=== PATIENT | male | born 1950 | race Caucasian/White ===

== ENCOUNTER → 2016-06-24 | Outpatient (CLI) | payer MEDICARE, MEDICAID ==
[2016-06-24 11:07] LABS: ALBUMIN 4.1 GM/DL (3.2-5.2); ALBUMIN/GLOBULIN RATIO 1.24 (1.00-1.93); BILIRUBIN,TOTAL 0.6 MG/DL (0.2-1.0); CALCIUM LEVEL 8.8 MG/DL (8.8-10.2); CREATININE FOR GFR 1.51 MG/DL (0.70-1.30); GLOMERULAR FILTRATION RATE 49.5 (>49); POTASSIUM SERUM 3.9 MEQ/L (3.5-5.1); TOTAL PROTEIN 7.4 GM/DL (6.4-8.2)
== END ==
LOC: M LAB 10:11
PROVIDERS: ATTEND Physician Assistant
DX: I10 Essential (primary) hypertension (principal); E78.2 Mixed hyperlipidemia

== ENCOUNTER → 2017-08-07 | Outpatient (REF) | payer MEDICARE | LOC: M SFHCPLAZ 12:41 | DX: D23.0 Other benign neoplasm of skin of lip (principal) | CPT/HCPCS: 88305 ==

== ENCOUNTER → 2018-07-31 | Outpatient (REF) | payer MEDICARE, MEDICAID ==
[2018-07-31 12:32] LABS: HEMATOCRIT 44.9 % (42.0-52.0); MEAN CORPUSCULAR HEMOGLOBIN 28.9 pg (27.0-33.0); MEAN CORPUSCULAR HGB CONC 33.4 g/dl (32.0-36.5); MEAN CORPUSCULAR VOLUME 86.5 fl (80.0-96.0); PLATELET COUNT, AUTOMATED 204 10^3/uL (150-450); RED BLOOD COUNT 5.19 10^6/uL (4.30-6.10); WHITE BLOOD COUNT 4.9 10^3/uL (4.0-10.0)
[2018-07-31 12:56] LABS: ALBUMIN 4.1 GM/DL (3.2-5.2); BILIRUBIN,TOTAL 0.7 MG/DL (0.2-1.0); CALCIUM LEVEL 9.2 MG/DL (8.8-10.2); CHOLESTEROL RISK RATIO 6.828 (<5); CREATININE FOR GFR 1.46 MG/DL (0.70-1.30); LDL CHOLESTEROL 130.8 MG/DL (<100); POTASSIUM SERUM 4.5 MEQ/L (3.5-5.1)
== END ==
LOC: M SFHCPLAZ 10:20
PROVIDERS: ATTEND Family Medicine
DX: N18.3 Chronic kidney disease, stage 3 (moderate) (principal); I12.9 Hypertensive chronic kidney disease with stage 1 through stage 4 chronic kidney disease, or unspecified chronic kidney disease; E78.2 Mixed hyperlipidemia; Z12.5 Encounter for screening for malignant neoplasm of prostate
CPT/HCPCS: 36415; 80053; 80061; 85027; G0103; G0463

== ENCOUNTER 2019-02-25 23:20 | Emergency (ER) | payer MEDICARE, MEDICAID ==
[~2019-02-25] VITALS: Ht 195.6 cm; Wt 94.1 kg
[2019-02-25] MEDS ORDERED: LOSA50TA88 PO (23:29)
[2019-02-25] MEDS ORDERED: CARV3.12 PO (23:29)
[2019-02-25] MEDS ORDERED: ZOLP10TA2 PO (23:29)
[2019-02-25] MEDS ORDERED: ATOR40TA75 PO (23:29)
[2019-02-25] MEDS ORDERED: CHLO125TA PO (23:29)
[2019-02-25] MEDS ORDERED: AMLO5TAB6 PO (23:29)
[2019-02-26 00:47] VITALS: BP 134/77
== END 2019-02-26 00:48 | disposition home or self-care (01) ==
LOC: M ED 23:20
DX: F41.1 Generalized anxiety disorder (principal); Q87.40 Marfan syndrome, unspecified; Z79.899 Other long term (current) drug therapy

== ENCOUNTER 2019-03-28 22:37 | Emergency (ER) | payer MEDICARE, MEDICAID ==
[~2019-03-28] VITALS: Ht 195.6 cm; Wt 89.5 kg
[~2019-03-28 22:37] MED LIST: AMLO5TAB6 PO; ATOR40TA75 PO; CARV3.12 PO; CHLO125TA PO; LOSA50TA88 PO; ZOLP10TA2 PO
[2019-03-28] MEDS ORDERED: amLODIPine 5 MG TAB PO ONE (23:15)
[2019-03-28 23:26] VITALS: BP 185/100
[2019-03-28 23:29] LABS: BASO % 0.8 % (0.0-1.0); EOS # 0.1 10^3/uL (0.0-0.5); EOS % 2.3 % (0.0-3.0); HEMOGLOBIN 13.8 g/dl (13.5-17.5); LYMPH # 1.7 10^3/uL (1.5-5.0); LYMPH % 32.6 % (24.0-44.0); MEAN CORPUSCULAR HEMOGLOBIN 28.3 pg (27.0-33.0); MEAN CORPUSCULAR HGB CONC 32.9 g/dl (32.0-36.5); MEAN CORPUSCULAR VOLUME 86.2 fl (80.0-96.0); MONO # 0.7 10^3/uL (0.0-0.8); MONO % 13.5 % (0.0-5.0); NEUTROPHILS # 2.6 10^3/uL (1.5-8.5); NEUTROPHILS % 50.8 % (36.0-66.0); PLATELET COUNT, AUTOMATED 168 10^3/uL (150-450); RED BLOOD COUNT 4.87 10^6/uL (4.30-6.10); WHITE BLOOD COUNT 5.1 10^3/uL (4.0-10.0)
[2019-03-28 23:53] LABS: BLOOD UREA NITROGEN 20 MG/DL (7-18); CALCIUM LEVEL 8.7 MG/DL (8.8-10.2); CARBON DIOXIDE LEVEL 24 MEQ/L (21-32); CHLORIDE LEVEL 109 MEQ/L (98-107); CK-MB VALUE MASS < 1.0 NG/ML (<3.6); CPK CREATINE PHOSPHOKINASE 108 U/L (39-308); CREATININE FOR GFR 1.51 MG/DL (0.70-1.30); GLUCOSE, FASTING 106 MG/DL (70-100); MB/CK RELATIVE INDEX 0.93 (< OR =4); POTASSIUM SERUM 3.8 MEQ/L (3.5-5.1); SODIUM LEVEL 141 MEQ/L (136-145); TROPONIN I < 0.02 NG/ML (< 0.10)
[2019-03-29 01:15] VITALS: BP 166/91
--- NOTE | 2019-03-29 08:39 | ECGEPIP ---
[facility] - ED Test Date: 2019-03-28 Pat Name: ANA BEYER Department: Room: - Gender: Male Review Manager: KAISER : 1950 Requested By: ANNELIESE Oliver Order Number: [id number] Reading MD: Jaspal Puga Measurements Intervals [place] Rate: 61 P: 26 MS: 145 QRS: -16 QRSD: 110 T: 47 QT: 411 QTc: 416 Interpretive Statements SINUS RHYTHM INCOMPLETE RIGHT BUNDLE BRANCH BLOCK NSTTW ABNORMALITIES NO PRIORS FOR COMPARISON Electronically Signed on 03-29-2019 8:39:25 EST by Jaspal Puga
== END 2019-03-29 01:20 | disposition home or self-care (01) ==
LOC: M ED 22:37
DX: I10 Essential (primary) hypertension (principal); E78.5 Hyperlipidemia, unspecified; F41.1 Generalized anxiety disorder; Z79.899 Other long term (current) drug therapy

== ENCOUNTER → 2020-01-13 | Outpatient (REF) | payer MEDICARE, MEDICAID ==
[~2020-01-13] MED LIST changes: +AMLO1TAB24 PO; -AMLO5TAB6 PO
[2020-01-13 13:02] LABS: HEMATOCRIT 44.9 % (42.0-52.0); HEMOGLOBIN 14.9 g/dl (13.5-17.5); MEAN CORPUSCULAR HEMOGLOBIN 28.9 pg (27.0-33.0); MEAN CORPUSCULAR HGB CONC 33.2 g/dl (32.0-36.5); PLATELET COUNT, AUTOMATED 182 10^3/uL (150-450); RED BLOOD COUNT 5.16 10^6/uL (4.30-6.10)
[2020-01-13 13:45] LABS: BILIRUBIN,TOTAL 0.9 MG/DL (0.2-1.0); CALCIUM LEVEL 9.4 MG/DL (8.8-10.2); CHOLESTEROL RISK RATIO 6.431 (<5); CREATININE FOR GFR 1.4 MG/DL (0.70-1.30); GLOMERULAR FILTRATION RATE 53.3 (>42); POTASSIUM SERUM 4.4 MEQ/L (3.5-5.1); TOTAL PROTEIN 7.7 GM/DL (6.4-8.2)
== END ==
LOC: M SFHCADAM 11:25
PROVIDERS: ATTEND Family Medicine
DX: N18.30 Chronic kidney disease, stage 3 unspecified (principal); E78.2 Mixed hyperlipidemia; I12.9 Hypertensive chronic kidney disease with stage 1 through stage 4 chronic kidney disease, or unspecified chronic kidney disease; Z12.5 Encounter for screening for malignant neoplasm of prostate; Z23 Encounter for immunization
CPT/HCPCS: 80053; 80061; 85027; 90682; G0008; G0103; G0463

== ENCOUNTER → 2021-06-18 | Outpatient (CLI) | payer MEDICARE, MEDICAID ==
[~2021-06-18] MED LIST changes: +LOSA50TA28 PO; -LOSA50TA88 PO
[2021-06-18 12:43] LABS: BASO # 0.1 10^3/uL (0.0-0.2); EOS # 0.2 10^3/uL (0.0-0.5); EOS % 2.6 % (0.0-3.0); HEMATOCRIT 48.4 % (42.0-52.0); HEMOGLOBIN 16.1 g/dl (13.5-17.5); LYMPH # 1.9 10^3/uL (1.5-5.0); MEAN CORPUSCULAR HEMOGLOBIN 28.6 pg (27.0-33.0); MEAN CORPUSCULAR HGB CONC 33.3 g/dl (32.0-36.5); MONO # 0.8 10^3/uL (0.0-0.8); MONO % 14.1 % (2.0-8.0); NEUTROPHILS # 2.8 10^3/uL (1.5-8.5); PLATELET COUNT, AUTOMATED 215 10^3/uL (150-450); RED BLOOD COUNT 5.63 10^6/uL (4.30-6.10); WHITE BLOOD COUNT 5.8 10^3/uL (4.0-10.0)
[2021-06-18 13:09] LABS: ALBUMIN 4.4 GM/DL (3.2-5.2); BILIRUBIN,TOTAL 0.6 MG/DL (0.2-1.0); CALCIUM LEVEL 9.5 MG/DL (8.8-10.2); CHOLESTEROL RISK RATIO 8.142 (<5); CREATININE FOR GFR 1.65 MG/DL (0.70-1.30); MAGNESIUM LEVEL 2.2 MG/DL (1.8-2.4); POTASSIUM SERUM 3.9 MEQ/L (3.5-5.1); TOTAL PROTEIN 8.2 GM/DL (6.4-8.2)
== END ==
LOC: M WUC 09:52
PROVIDERS: ATTEND Physician Assistant
DX: E78.2 Mixed hyperlipidemia (principal)

== ENCOUNTER → 2022-02-04 | Outpatient (CLI) | payer MEDICARE, MEDICAID ==
[2022-02-04 13:07] LABS: HEMOGLOBIN 14.8 g/dl (13.5-17.5); MEAN CORPUSCULAR HEMOGLOBIN 29.3 pg (27.0-33.0); MEAN CORPUSCULAR HGB CONC 32.9 g/dl (32.0-36.5); MEAN CORPUSCULAR VOLUME 89.1 fl (80.0-96.0); PLATELET COUNT, AUTOMATED 188 10^3/uL (150-450); RED BLOOD COUNT 5.05 10^6/uL (4.30-6.10); WHITE BLOOD COUNT 4.8 10^3/uL (4.0-10.0)
[2022-02-04 13:52] LABS: ALBUMIN 4.1 GM/DL (3.2-5.2); BILIRUBIN,TOTAL 0.7 MG/DL (0.2-1.0); CALCIUM LEVEL 9.4 MG/DL (8.8-10.2); CHOLESTEROL RISK RATIO 7.212 (<5); CREATININE FOR GFR 1.45 MG/DL (0.70-1.30); GLOMERULAR FILTRATION RATE 50.9 (>42); MAGNESIUM LEVEL 2.5 MG/DL (1.8-2.4); POTASSIUM SERUM 4.3 MEQ/L (3.5-5.1); TOTAL PROTEIN 7.5 GM/DL (6.4-8.2)
== END ==
LOC: M WUC 10:08
PROVIDERS: ATTEND Physician Assistant
DX: E78.2 Mixed hyperlipidemia (principal); I11.9 Hypertensive heart disease without heart failure

== ENCOUNTER → 2022-02-14 | Outpatient (CLI) | payer MEDICARE, MEDICAID | LOC: M ADAMS 13:31 | PROVIDERS: ATTEND Physician Assistant | DX: M25.561 Pain in right knee (principal) ==

== ENCOUNTER → 2022-05-30 | Outpatient (CLI) | payer MEDICARE, MEDICAID | LOC: M RAD 07:58 | PROVIDERS: ATTEND Internal Medicine Cardiovascular Disease | DX: Q44.6 Cystic disease of liver (principal) ==

== ENCOUNTER → 2023-12-18 | Outpatient (CLI) | payer MEDICARE, MEDICAID | LOC: M RAD 09:38 | PROVIDERS: ATTEND Physician Assistant | DX: K76.89 Other specified diseases of liver (principal); N28.1 Cyst of kidney, acquired ==

== ENCOUNTER → 2024-05-18 | Outpatient (REF) | payer MEDICARE, MEDICAID ==
[2024-05-18 13:27] LABS: HEMATOCRIT 45.7 % (42.0-52.0); HEMOGLOBIN 15.3 g/dl (13.5-17.5); MEAN CORPUSCULAR HGB CONC 33.5 g/dl (32.0-36.5); MEAN CORPUSCULAR VOLUME 89.6 fl (80.0-96.0); PLATELET COUNT, AUTOMATED 194 10^3/uL (150-450); WHITE BLOOD COUNT 5.6 10^3/uL (4.0-10.0)
[2024-05-18 13:57] LABS: ALBUMIN 4.5 G/DL (3.2-5.2); CALCIUM LEVEL 9.9 MG/DL (8.3-10.6); CHOLESTEROL RISK RATIO 7.08 (<5); CREATININE FOR GFR 1.46 MG/DL (0.70-1.30); FREE T4 1.62 NG/DL (0.89-1.76); GLOMERULAR FILTRATION RATE 50.2 (>42); HDL CHOLESTEROL 40.8 MG/DL (>40); LDL CHOLESTEROL 191.4 MG/DL (<100); NON-HDL-C 248.2 MG/DL; POTASSIUM SERUM 4.5 MMOL/L (3.5-5.1); PSA SCREENING 3.7 NG/ML (< 4.00); THYROID STIMULATING HORMONE 1.704 uIU/ML (0.55-4.78)
[2024-05-18 14:01] LABS: HEMOGLOBIN A1c 5.6 % (4.0-6.0)
== END ==
LOC: M SFHCADAM 09:23
PROVIDERS: ATTEND Family Medicine
DX: Z12.5 Encounter for screening for malignant neoplasm of prostate (principal); Q87.40 Marfan syndrome, unspecified; Z13.1 Encounter for screening for diabetes mellitus; E78.2 Mixed hyperlipidemia; F51.04 Psychophysiologic insomnia; I10 Essential (primary) hypertension
CPT/HCPCS: 80053; 80061; 83036; 84439; 84443; 85027; G0103

== ENCOUNTER → 2025-02-16 | Outpatient (REF) | payer MEDICARE, MEDICAID ==
[~2025-02-16] MED LIST changes: +ZOLP10TA11 PO; -ZOLP10TA2 PO
[2025-02-16 18:07] LABS: PLATELET COUNT, AUTOMATED 224 10^3/uL (150-450)
[2025-02-16 18:13] LABS: ALT/SGPT 23 U/L (7.0-40); AST/SGOT 25 U/L (<34); CALCIUM LEVEL 9.8 MG/DL (8.3-10.6); CARBON DIOXIDE LEVEL 31 MMOL/L (20-31); CHLORIDE LEVEL 98 MMOL/L (98-107); CHOLESTEROL LEVEL 279 MG/DL (<200); CHOLESTEROL RISK RATIO 6.94 (<5); CREATININE FOR GFR 1.66 MG/DL (0.70-1.30); FREE T4 1.62 NG/DL (0.89-1.76); GLOMERULAR FILTRATION RATE 42.7 (>42); NON-HDL-C 238.8 MG/DL; POTASSIUM SERUM 4.3 MMOL/L (3.5-5.1); SODIUM LEVEL 140 MMOL/L (136-145); TRIGLYCERIDES LEVEL 471 MG/DL (<150)
[2025-02-16 18:42] LABS: ESTIMATED AVERAGE GLUCOSE 123.0 MG/DL (60-110)
== END ==
LOC: M SFHCADAM 14:28
PROVIDERS: ATTEND Family Medicine
DX: N18.31 Chronic kidney disease, stage 3a (principal); E78.2 Mixed hyperlipidemia; Z13.1 Encounter for screening for diabetes mellitus; Z12.5 Encounter for screening for malignant neoplasm of prostate
CPT/HCPCS: 80053; 80061; 83036; 84439; 84443; 85027; G0103